=== PATIENT | male | born 1990 | race Caucasian/White ===

== ENCOUNTER 2023-08-17 06:29 | Emergency (ER) | payer OTHER ==
[~2023-08-17] VITALS: Ht 170.2 cm; Wt 127.0 kg
[2023-08-17 06:29] VITALS: BP 137/77; PULSE 74; RESP 17; TEMP 97.8; O2SAT 97
== END 2023-08-17 08:00 ==
LOC: MED 06:29
DX: Z02.89 Encounter for other administrative examinations (principal); V43.92XA Unspecified car occupant injured in collision with other type car in traffic accident, initial encounter; Y93.89 Activity, other specified; Y92.410 Unspecified street and highway as the place of occurrence of the external cause; Y99.8 Other external cause status
CPT/HCPCS: 70450; 99284